=== PATIENT | female | born 1985 | race Caucasian/White ===

== ENCOUNTER 2016-05-17 17:50 | Emergency (ER) | payer OTHER | END 2016-05-17 20:22 | disposition left against medical advice (07) | LOC: UCCORT 17:50 | DX: R05 Cough (principal); R09.89 Other specified symptoms and signs involving the circulatory and respiratory systems; J02.9 Acute pharyngitis, unspecified; H92.09 Otalgia, unspecified ear; Z53.21 Procedure and treatment not carried out due to patient leaving prior to being seen by health care provider ==

== ENCOUNTER 2017-02-06 16:26 | Emergency (ER) | payer SELFPAY ==
[2017-02-06 16:45] VITALS: BP 139/87
[2017-02-06] MEDS ORDERED: Ondansetron ODT TAB* 4 MG PO ONE (17:35)
--- NOTE | 2017-02-06 17:51 | UC ---
Robert Alvarado Natalie, scribed for Cl Brewer MD on 02/06/17 at 1741 . Abdominal Pain Female HPI - HPI Summary HPI Summary: The pt is a 31 y/o F presenting to c/o LLQ abd pain and distension starting last night. The pain radiates to her left back. The pain is described as crampy. The pain is rated 8/10. Pt additionally c/o nausea and vomiting. Pt denies diarrhea, nml urination and BM, and flatulence. She has had two C- sections and a cholecystectomy. She has SHx of smoking. She is allergic to Percocet, Codeine, and Morphine. - History of Current Complaint Chief Complaint: UCGI Stated Complaint: ABDOMINAL PAIN Time Seen by Provider: 02/06/17 17:28 Hx Obtained From: Patient Hx Last Menstrual Period: 02/01/17 Onset/Duration: Sudden Onset, Lasting Hours - started last night, Still Present Severity Initially: Severe Severity Currently: Severe Pain Intensity: 8 Pain Scale Used: 0-10 Numeric Location: Discrete At: LLQ, Other Radiates: Yes Radiates to: Back Character: Cramping Aggravating Factor(s): Movement, Deep Breaths Alleviating Factor(s): Nothing Associated Signs and Symptoms: Positive: Constipation, Urinary Symptoms - decreased urination, Nausea, Vomiting. Negative: Diarrhea Allergies/Adverse Reactions: Allergies Allergy/AdvReac Type Severity Reaction Status Date / Time Codeine Allergy Severe THROAT Verified 02/06/17 16:45 SWELLS Oxycodone [From Percocet] Allergy Severe THROAT Verified 02/06/17 16:45 SWELLS Penicillins Allergy Severe THROAT Verified 02/06/17 16:45 SWELLS Home Medications: Home Medications NK [No Home Medications Reported] 02/06/17 [History Confirmed 02/06/17] PMH/Surg Hx/FS Hx/Imm Hx - Surgical History Surgical History: Yes Surgery Procedure, Year, and Place: CHOLYCYSTECTOMY, CSECTION X 2, KNEE SURGERY - Family History Known Family History: Positive: Cardiac Disease, Diabetes - Social History Alcohol Use: Rare Substance Use Type: None Smoking Status (MU): Current Every Day Smoker Type: Cigarettes Amount Used/How Often: 1/2 pack daily - Immunization History Most Recent Influenza Vaccination: declined Most Recent Tetanus Shot: DECLINED Most Recent Pneumonia Vaccination: none Review of Systems Gastrointestinal: Abdominal Pain, Vomiting, Nausea Genitourinary: Frequency - decreased Musculoskeletal: Other: - back pain Is Patient Immunocompromised?: Yes All Other Systems Reviewed And Are Negative: Yes Physical Exam Triage Information Reviewed: Yes Appearance: Well-Appearing, Well-Nourished Vital Signs: Initial Vital Signs Temp 99.8 F 02/06/17 16:38 Pulse 71 02/06/17 16:38 Resp 18 02/06/17 16:38 BP 139/87 02/06/17 16:38 Pulse Ox 100 02/06/17 16:38 ENT: Positive: Normal ENT inspection Neck: Positive: Supple, Nontender Respiratory: Positive: Chest non-tender, Lungs clear, Normal breath sounds Cardiovascular: Positive: RRR, No Murmur Abdomen Description: Positive: Distended Musculoskeletal: Positive: ROM Intact Neurological: Positive: Alert, Muscle Tone Normal Psychological: Positive: Age Appropriate Behavior Skin Exam: Normal Abd Pain Female Course/Dx - Course Course Of Treatment: 31 yr old with abdominal pain and distention. Plan to transfer by ambulance , and she signed out AMA with refusal of transport. - Differential Dx/Diagnosis Provider Diagnoses: abdominal pain. distention. hypertension Discharge - Discharge Plan Condition: Good Disposition: TRANS HIGHER LVL OF CARE FAC Referrals: No Primary Care Phys,NOPCP [Primary Care Provider] - The documentation as recorded by the Robert desir Natalie accurately reflects the service I personally performed and the decisions made by me, Cl Brewer MD.
== END 2017-02-06 17:51 | disposition short-term general hospital (02) ==
LOC: UCEAST 16:26
DX: R10.9 Unspecified abdominal pain (principal); R14.0 Abdominal distension (gaseous); I10 Essential (primary) hypertension; F17.210 Nicotine dependence, cigarettes, uncomplicated; Z88.0 Allergy status to penicillin; Z88.5 Allergy status to narcotic agent
CPT/HCPCS: 99212; A9270-GY; G0463

== ENCOUNTER 2018-09-02 09:47 | Emergency (ER) | payer SELFPAY ==
[2018-09-02 10:44] VITALS: BP 120/73
[2018-09-02] MEDS ORDERED: Dexamethasone TAB* 4 MG PO ONE (11:02)
--- NOTE | 2018-09-02 11:07 | UC ---
UC General HPI - HPI Summary HPI Summary: day 3 of sore throat and fever. R ear pain from throat pain. - History of Current Complaint Chief Complaint: UCGeneralIllness Stated Complaint: ST Time Seen by Provider: 09/02/18 10:35 Hx Obtained From: Patient Hx Last Menstrual Period: 02/01/17 Onset/Duration: Gradual Onset Timing: Constant Pain Intensity: 9 Aggravating: swallowing Associated Signs & Symptoms: Positive: Cough. Negative: SOB - Allergy/Home Medications Allergies/Adverse Reactions: Allergies Allergy/AdvReac Type Severity Reaction Status Date / Time codeine Allergy Throat Verified 09/02/18 10:39 Swelling, Difficulty Breathing oxycodone Allergy Throat Verified 09/02/18 10:39 Swelling, Difficulty Breathing Penicillins AdvReac "It just Verified 09/02/18 10:39 doesn't do anything." Home Medications: Home Medications Ibuprofen TAB* [Advil TAB*] 600 mg PO Q6H PRN 09/02/18 [History Confirmed ] PMH/Surg Hx/FS Hx/Imm Hx Previously Healthy: Yes - Surgical History Surgical History: Yes Surgery Procedure, Year, and Place: CHOLYCYSTECTOMY, CSECTION X 2, KNEE SURGERY - Family History Known Family History: Positive: Cardiac Disease, Diabetes - Social History Lives: With Family Alcohol Use: Rare Substance Use Type: Marijuana Smoking Status (MU): Heavy Every Day Tobacco Smoker Type: Cigarettes Amount Used/How Often: 1/2 PPD Length of Time of Smoking/Using Tobacco: On and Off Since Age 17 - Immunization History Most Recent Influenza Vaccination: declined Most Recent Tetanus Shot: DECLINED Most Recent Pneumonia Vaccination: none Review of Systems All Other Systems Reviewed And Are Negative: Yes Constitutional: Positive: Fever ENT: Positive: Sore Throat, Ear Ache Respiratory: Positive: Cough Physical Exam Triage Information Reviewed: Yes Vital Signs: Initial Vital Signs Temp 97.1 F 09/02/18 10:36 Pulse 107 09/02/18 10:36 Resp 17 09/02/18 10:36 BP 120/73 09/02/18 10:36 Pulse Ox 98 09/02/18 10:36 Vital Signs Reviewed: Yes ENT: Positive: Pharyngeal erythema, TMs normal, Tonsillar swelling - R>L, Tonsillar exudate - R, Uvula midline - but red and modearte swelling without airway compromise.. Negative: Nasal congestion, Nasal drainage, Trismus, Muffled voice, Hoarse voice Neck: Positive: Supple, Tenderness @ - peritonsilar nodes, Enlarged Nodes @ - peritonsilar Respiratory: Positive: Lungs clear, Normal breath sounds, No respiratory distress Cardiovascular: Positive: RRR Musculoskeletal: Positive: ROM Intact Neurological: Positive: Alert Psychological: Positive: Age Appropriate Behavior Skin Exam: Normal Skin: Negative: Rashes Course/Dx - Differential Dx - Multi-Symptom Differential Diagnoses: Other - no concern for peritonsilar abscess. exam c/w pahryngitis and uvulitis. + STREP. - Diagnoses Provider Diagnosis: Uvulitis, Strep pharyngitis Discharge - Sign-Out/Discharge Documenting (check all that apply): Patient Departure All imaging exams completed and their final reports reviewed: No Studies - Discharge Plan Condition: Stable Disposition: HOME Prescriptions: Amoxicillin PO (*) [Amoxicillin 875 MG (*)] 875 mg PO BID 10 Days #20 tab Patient Education Materials: Uvulitis (ED), Strep Throat (DC) Referrals: [facility] [Medical Doctor] - 3 Days Additional Instructions: GO TO THE ER FOR ANY WORSENING - Billing Disposition and Condition Condition: STABLE Disposition: Home
== END 2018-09-02 11:22 | disposition home or self-care (01) ==
LOC: UCCORT 09:47
DX: K12.2 Cellulitis and abscess of mouth (principal); J02.0 Streptococcal pharyngitis; Z88.0 Allergy status to penicillin; F17.210 Nicotine dependence, cigarettes, uncomplicated
CPT/HCPCS: 87651; 99212; G0463; J8540

== ENCOUNTER 2019-06-25 00:36 | Inpatient (IN) ==
[2019-06-25] MEDS ORDERED: Lactated Ringers 1000 ml BAG 1,000 ML IV ONE (00:51)
[2019-06-25] MEDS ORDERED: Gentamicin ADULT (*) 40 MG/ML VIAL (2 ML VIAL = 80 MG) IVPB ONE (00:54)
[2019-06-25] MEDS ORDERED: Lactated Ringers 1000 ml BAG 1,000 ML IV SCH (01:00)
[2019-06-25] MEDS ORDERED: Clindamycin 900 MG/D5W BAG(*) 900 MG/50 ML BAG IVPB SCH (01:00)
[2019-06-25] MEDS ORDERED: Sodium Citrate/Citric Acid LIQ 15 ML UDC ONE (01:01)
[2019-06-25] MEDS ORDERED: ceFOXitin 2 GM IVPREMIX (*) 2 GM/50 ML BAG IVPB ONE (01:02)
[2019-06-25] MEDS ORDERED: ceFOXitin 2 GM IVPREMIX (*) 2 GM/50 ML BAG ONE ×2 (01:22→04:23)
[2019-06-25 01:27] LABS: ABS Basophils 0.1 10^3/ul (0-0.2); ABS Eosinophils 0.1 10^3/ul (0-0.6); ABS Lymphocytes 1.7 10^3/ul (1.0-4.8); ABS Monocytes 0.9 10^3/ul (0-0.8); Eosinophil % 0.6 %; Hematocrit 26 % (35-47); Hemoglobin 7.9 g/dL (12.0-16.0); Lymphocyte % 14.1 %; Mean Corpuscular HGB Conc 31 g/dL (31-36); Mean Corpuscular Hemoglobin 19 pg (27-31); Mean Corpuscular Volume 61 fL (80-97); Mean Platelet Volume 8.1 fL (7.4-10.4); Platelet Count 204 10^3/uL (150-450); Red Cell Distribution Width 20 % (10-15); White Blood Count 11.8 10^3/uL (3.5-10.8)
[2019-06-25 01:36] LABS: Platelet Count 204 10^3/ul (150-450)
[2019-06-25 01:42] LABS: Activated Partial Thrombo Time 27.3 seconds (26.0-38.0); INR 0.98 (0.82-1.09)
[2019-06-25] MEDS ORDERED: Bupivacaine-MPF SPINAL 7.5 MG/ML - 2ML AMP ONE (02:04)
[2019-06-25 02:05] LABS: Albumin 3.6 g/dL (3.2-5.2); Calcium 9.1 mg/dL (8.6-10.3); Potassium 3.7 mmol/L (3.5-5.0); Total Bilirubin 0.6 mg/dL (0.2-1.0)
[2019-06-25] MEDS ORDERED: Oxytocin 10 UNITS/ML 1 ML VIAL ONE ×2 (02:05→03:06)
[2019-06-25] MEDS ORDERED: Ondansetron 4 mg VIAL 2 MG/ML 2 ml VIAL ONE (02:05)
[2019-06-25] MEDS ORDERED: Morphine PF AMP (0.5MG/ML) 5 MG/10 ML AMP ONE (02:06)
[2019-06-25 02:08] LABS: Schistocytes ABSENT
[2019-06-25 02:11] LABS: BUN/Creatinine Ratio 9.7 (8-20); EGFR African American 134.1 (>60); EGFR Non-African American 110.9 (>60); Globulin 3.7 g/dL (2-4); Total Protein 7.3 g/dL (6.4-8.9); Uric Acid 5.4 mg/dL (2.3-6.6)
[2019-06-25] MEDS ORDERED: Naloxone 0.4 mg VIAL 0.4 mg/ml 1 ml VIAL IV PRN (02:21)
[2019-06-25] MEDS ORDERED: HYDROmorphone 1 MG/1 ML SYRINGE IV PRN (02:21)
[2019-06-25] MEDS ORDERED: Morphine 2 MG/ML SYRINGE IV PRN (02:26)
[2019-06-25] MEDS ORDERED: diPHENhydraMINE IV 50 MG/ML 1 ml VIAL (BENADRYL) IV PRN (02:33)
[2019-06-25] MEDS ORDERED: Carboprost Tromethamine 250 mcg 1 ml VIAL ONE ×3 (02:33→03:36)
[2019-06-25] MEDS ORDERED: Phenylephrine 40 mcg/mL 10mL (400mcg) SYRINGE ONE (02:40)
[2019-06-25] MEDS ORDERED: Tranexamic Acid 1,000 MG/10 ML SDV ONE (03:25)
[2019-06-25 03:43] LABS: Mean Platelet Volume 7.9 fL (7.4-10.4); Platelet Count 149 10^3/uL (150-450)
[2019-06-25] MEDS ORDERED: Rocuronium 50 mg VIAL 10 mg/ml 5 ml VIAL (50 mg) ONE ×3 (04:10→10:02)
[2019-06-25] MEDS ORDERED: fentaNYL 100 mcg/2 ml 50 MCG/ML VIAL ONE ×2 (04:22→05:09)
[2019-06-25] MEDS ORDERED: Calcium CHLORIDE 10% SYRINGE 1 GM/10 ML ONE ×5 (04:44→09:00)
[2019-06-25] MEDS ORDERED: Calcium CHLORIDE 10% SYRINGE 1 GM/10 ML IV ONE (04:47)
[2019-06-25] MEDS ORDERED: Succinylcholine 200 mg VIAL 20 mg/ml 10 ml VIAL (200 mg) ONE (04:47)
[2019-06-25] MEDS ORDERED: Etomidate 20 mg/10 ml 2 MG/ML 10 ml VIAL ONE (04:47)
[2019-06-25] MEDS ORDERED: Norepinephrine IV 1 MG/ML 4 ML VIAL ONE (04:48)
[2019-06-25 04:51] LABS: Activated Partial Thrombo Time 24.2 seconds (26.0-38.0); Fibrinogen 368.6 mg/dL (110.8-404.3); INR 1.03 (0.82-1.09)
[2019-06-25 06:57] LABS: Calcium 8.7 mg/dL (8.6-10.3); Chloride 111 mmol/L (101-111); Sodium 135 mmol/L (135-145)
[2019-06-25] MEDS ORDERED: Phenylephrine IV 10 MG/ML 1 ml VIAL ONE (06:58)
[2019-06-25 07:00] LABS: Activated Partial Thrombo Time 32.9 seconds (26.0-38.0); Fibrinogen 188.8 mg/dL (110.8-404.3); INR 1.29 (0.82-1.09)
[2019-06-25 07:03] LABS: ALT 8 U/L (7-52); Alkaline Phosphatase 112 U/L (34-104); BUN/Creatinine Ratio 9.2 (8-20); Blood Urea Nitrogen 8 mg/dL (6-24); EGFR African American 90.7 (>60); Glucose 200 mg/dL (70-100)
[2019-06-25 07:11] LABS: Hematocrit 25 % (35-47); Hemoglobin 8.5 g/dL (12.0-16.0); Mean Corpuscular HGB Conc 34 g/dL (31-36); Mean Corpuscular Hemoglobin 29 pg (27-31); Mean Corpuscular Volume 86 fL (80-97); Mean Platelet Volume 8.3 fL (7.4-10.4); Platelet Count 65 10^3/uL (150-450); Red Blood Count 2.94 10^6 /uL (3.70-4.87); Red Cell Distribution Width 17 % (10-15); White Blood Count 17.8 10^3/uL (3.5-10.8)
[2019-06-25 07:24] LABS: CO2 Carbon Dioxide 11 mmol/L (22-32)
[2019-06-25 07:36] LABS: Hemoglobin 8.5 g/dL (12.0-16.0); Mean Platelet Volume 8.3 fL (7.4-10.4); Platelet Count 65 10^3/uL (150-450)
[2019-06-25] MEDS ORDERED: Heparin 2 UNITS/ML 1000 mls 2,000 ML IV ONE (08:24)
[2019-06-25] MEDS ORDERED: Iohexol 350 (CONTRAST) 200 ML MDV IV ONE (08:33)
[2019-06-25 08:36] LABS: Albumin 1.6 g/dL (3.2-5.2); Albumin/Globulin Ratio 1.1 (1-3); Anion Gap 13 mmol/L (2-11); Globulin 1.4 g/dL (2-4); Total Protein < 3.0 g/dL (6.4-8.9)
[2019-06-25] MEDS ORDERED: Sodium Bicarbonate 8.4% SYR 50 ml SYRINGE ONE (08:49)
[2019-06-25] MEDS ORDERED: Sodium Bicarbonate 8.4% VIAL 1 MEQ/ML 50 ml VIAL (50 meq) ONE (08:50)
[2019-06-25] MEDS ORDERED: NOREPINEPHRINE IV ONE (09:05)
[2019-06-25] MEDS ORDERED: [UNRECOGNIZED DRUG - OTHER] IV ONE (09:05)
[2019-06-25 09:07] LABS: Hematocrit 26 % (35-47); Hemoglobin 8.6 g/dL (12.0-16.0); Mean Corpuscular HGB Conc 33 g/dL (31-36); Mean Corpuscular Hemoglobin 29 pg (27-31); Mean Corpuscular Volume 89 fL (80-97); Red Blood Count 2.94 10^6 /uL (3.70-4.87); Red Cell Distribution Width 16 % (10-15); White Blood Count 16.2 10^3/uL (3.5-10.8)
[2019-06-25 09:20] LABS: ALT 17 U/L (7-52); Albumin 2.1 g/dL (3.2-5.2); Albumin/Globulin Ratio 1.4 (1-3); Alkaline Phosphatase 109 U/L (34-104); BUN/Creatinine Ratio 10.3 (8-20); Blood Urea Nitrogen 9 mg/dL (6-24); CO2 Carbon Dioxide 15 mmol/L (22-32); Calcium 9.9 mg/dL (8.6-10.3); Chloride 106 mmol/L (101-111); EGFR African American 90.7 (>60); Globulin 1.5 g/dL (2-4); Glucose 214 mg/dL (70-100); Sodium 138 mmol/L (135-145); Total Protein 3.6 g/dL (6.4-8.9)
[2019-06-25 09:31] LABS: Mean Platelet Volume 9.5 fL (7.4-10.4); Platelet Count 16 10^3/uL (150-450)
[2019-06-25 09:48] LABS: ABS Basophils 0.1 10^3/ul (0-0.2); ABS Eosinophils 0.1 10^3/ul (0-0.6); ABS Lymphocytes 1.7 10^3/ul (1.0-4.8); ABS Monocytes 0.3 10^3/ul (0-0.8); ABS Nucleated RBC 0.5 10^3/ul; Eosinophil % 0.5 %; Lymphocyte % 9.7 %; Nucleated Red Blood Cells % 2.7
[2019-06-25 10:28] LABS: Anion Gap 17 mmol/L (2-11)
[2019-06-25] MEDS ORDERED: Gelfoam Sponge SIZE 100 SPONGE ONE (13:07)
== END 2019-06-25 11:55 | disposition short-term general hospital (02) | DRG 540 ==
LOC: MCHOBOUT 00:36 → MCHOB 00:54 → ICU 06:10
PROVIDERS: ADMIT Obstetrics & Gynecology; ATTEND Obstetrics & Gynecology